=== PATIENT | female | born 1975 | race Caucasian/White ===

== ENCOUNTER 2022-11-20 08:14 | Day surgery (SDC) | payer MEDICAID ==
[~2022-11-20] VITALS: Ht 172.7 cm; Wt 149.0 kg
[2022-11-20] MEDS ORDERED: fentaNYL/PF 50MCG/1 ML 2ML syringe ONE (08:19)
[2022-11-20] MEDS ORDERED: MIDAZolam 1 MG/ML 5ML VIAL ONE (08:20)
[2022-11-20] MEDS ORDERED: LIDOcaine Viscous 15ml cup ONE (08:20)
[2022-11-20 08:25] VITALS: BP 137/56
[2022-11-20] MEDS ORDERED: MULT-1085 PO (08:34)
[2022-11-20] MEDS ORDERED: OMEG10006 PO (08:34)
[2022-11-20] MEDS ORDERED: LEVO75TA PO (08:34)
[2022-11-20] MEDS ORDERED: SERT50TA PO (08:34)
[2022-11-20] MEDS ORDERED: CHOL10006 PO (08:34)
[2022-11-20 10:15] VITALS: BP 121/66
[2022-11-20 10:25] VITALS: BP 115/75
[2022-11-20 10:35] VITALS: BP 125/65
[2022-11-20 10:45] VITALS: BP 120/74
== END 2022-11-20 10:50 | disposition home or self-care (01) ==
LOC: GI LAB 08:14
PROVIDERS: ATTEND Internal Medicine Gastroenterology
DX: Z12.11 Encounter for screening for malignant neoplasm of colon (principal); R12 Heartburn; K63.5 Polyp of colon; K21.00 Gastro-esophageal reflux disease with esophagitis, without bleeding; E66.01 Morbid (severe) obesity due to excess calories; Z68.42 Body mass index [BMI] 45.0-49.9, adult; I50.9 Heart failure, unspecified; Z88.2 Allergy status to sulfonamides; Z79.899 Other long term (current) drug therapy; Z80.0 Family history of malignant neoplasm of digestive organs
CPT/HCPCS: 43239; 45385; 99152; 99153; C1889; J2250; J3010; J7030; Z7512; A4620

== ENCOUNTER 2023-05-08 11:05 | Emergency (ER) | payer MEDICAID ==
[~2023-05-08] VITALS: Ht 172.7 cm; Wt 138.2 kg
[~2023-05-08 11:05] MED LIST: CHOL10006 PO; LEVO75TA PO; MULT-1085 PO; OMEG10006 PO; SERT50TA PO
[2023-05-08 11:20] VITALS: BP 125/62; PULSE 73; RESP 18; TEMP 97; O2SAT 98
== END 2023-05-08 14:59 | disposition left against medical advice (07) ==
LOC: ER 11:05
DX: M25.511 Pain in right shoulder (principal); Z53.21 Procedure and treatment not carried out due to patient leaving prior to being seen by health care provider
CPT/HCPCS: 73030; 99281